=== PATIENT | female | born 1970 | race Caucasian/White ===

== ENCOUNTER → 2016-12-23 | Outpatient (CLI) | payer OTHER ==
[~2016-12-23] MED LIST: CYCL0.052 OP; FLNIN NAE; MTR600X PO; MULTTAB58 PO; OXYC-643 PO
[2016-12-23 17:30] LABS: BLOOD UREA NITROGEN 13 mg/dl (7-18); BUN/CREATININE RATIO 17.8 (10-20); CALCIUM 9.2 mg/dl (8.5-10.1); CARBON DIOXIDE 27 mmol/L (21-32); CHLORIDE 103 mmol/L (98-107); CHOLESTEROL 219 mg/dl (0-200); CREATININE 0.74 mg/dl (0.60-1.20); GLUCOSE 82 mg/dl (70-99); POTASSIUM 3.8 mmol/L (3.5-5.1); SODIUM 138 mmol/L (136-145)
[2016-12-23 17:34] LABS: CHOLESTEROL/HDL RATIO 5.2; HDL CHOLESTEROL 42 mg/dl; LDL CHOLESTEROL CALCULATED 149 mg/dl; TRIGLYCERIDES 142 mg/dl (0-150); VERY LOW DENSITY LIPOPROT CALC 28 mg/dl
== END | disposition home or self-care (01) ==
LOC: C.LABBFT 11:50
PROVIDERS: ATTEND Nurse Practitioner
DX: Z13.6 Encounter for screening for cardiovascular disorders (principal); E55.9 Vitamin D deficiency, unspecified

== ENCOUNTER → 2017-05-04 | Outpatient (CLI) | payer OTHER | END | disposition home or self-care (01) | LOC: C.LABSPEC 17:21 | PROVIDERS: ATTEND Physician Assistant Medical | DX: J02.9 Acute pharyngitis, unspecified (principal) ==

== ENCOUNTER 2023-10-22 17:57 | Observation (INO) ==
[2023-10-22] MEDS ORDERED: ACETAMINOPHEN 1,000 MG/100 ML VIAL IV STA (18:19)
--- NOTE | 2023-10-22 18:19 | ED Triage Note ---
Date of Service October 22, 2023 Provider in Triage Author: Prasanth Goodrich History of Present Illness This patient was briefly evaluated while in triage. An abbreviated physical exam was performed. This patient is a 53-year-old Female who presents to the ED for evaluation of ab dominal pain and nausea. Symptoms more upper abdomen and into back. Symptoms began around 5pm. No fever. Hx of hysterectomy. Still with GB/appendix. Physical Exam Limited Triage Exam: VITALS: Vitals are noted on the nurse's note and reviewed by myself. Vital signs stable. GENERAL: Well-developed, well-nourished, white female who is uncomfortable appearing. HEART: Regular rate and rhythm without murmurs gallops or rubs. LUNGS: Clear to auscultation bilaterally without wheezes, rales or rhonchi. No retractions or accessory muscle use. NEURO: Patient was alert and oriented to person place and time. CN II through XII grossly intact. Initial orders for labs and / or imaging were placed and patient was placed in the waiting area until a bed is available. Please see further documentation for the full ED course. MDM / Impression Impression Impression: Right upper quadrant abdominal pain, Cholelithiasis
[2023-10-22] MEDS ORDERED: SODIUM CHLORIDE 0.9% 1,000 ML IV SCH (18:30)
[2023-10-22 19:39] LABS: Basophils # (auto) 0.09 K/uL (0.00-0.20); Basophils % (auto) 0.7 %; Eosinophils # (auto) 0.12 K/uL (0.00-0.50); Hematocrit (blood only) 40.1 % (37.0-47.0); Hemoglobin 13.6 g/dl (12.0-16.0); Immature Granulocytes # (auto) 0.05 K/uL (0.01-0.20); Immature Granulocytes % (auto) 0.4 %; Lymphocytes # (auto) 2.21 K/uL (1.20-3.40); Lymphocytes % (auto) 17.9 %; Mean Corpuscular Hemoglobin 27.9 pg (25.0-34.0); Mean Corpuscular Hgb Conc 33.9 g/dL (32.0-36.0); Mean Corpuscular Volume 82.2 fL (80.0-100.0); Mean Platelet Volume 10.3 fL (9.4-12.4); Monocytes # (auto) 0.75 K/uL (0.11-0.59); Monocytes % (auto) 6.1 %; Neutrophils # (auto) 9.14 K/uL (1.40-6.50); Neutrophils % (auto) 73.9 %; Platelet Count 397 K/uL (130-400); RDW Coefficient of Variation 13.2 % (11.5-14.5); RDW Standard Deviation 39.7 fL (36.4-46.3); Red Blood Count 4.88 M/uL (4.20-5.40); White Blood Count 12.36 K/ul (4.8-10.8)
[2023-10-22 19:46] LABS: Albumin Level 4.2 gm/dl (3.4-5.0); Bilirubin,Total 0.4 mg/dl (0.2-1.0); Calcium 9.5 mg/dl (8.6-10.3); Potassium 3.7 mmol/L (3.5-5.1)
[2023-10-22 19:53] LABS: Albumin Globulin Ratio 1.4 (0.9-2); Est GFR (African American) 95.4 ml/min; Est GFR (Non-African American) 82.3 ml/min; Globulin 2.9 gm/dl (2.5-4.0); Total Protein 7.1 gm/dl (6.0-8.3)
[2023-10-22 22:02] LABS: Appearance Urine Clear (Clear); Bilirubin Urine Negative (Negative); Blood Urine Negative (Negative); Color Urine Dark Yellow; Glucose Urine UA Negative (Negative); Ketones Urine Trace (Negative); Leukocyte Esterase Urine Negative (Negative); Nitrite Urine Negative (Negative); Protein Urine Negative (Negative); Specific Gravity Urine 1.039 (1.000-1.030); Urobilinogen Urine Negative (Negative); pH Urine 5.5 (4.5-7.5)
--- NOTE | 2023-10-22 23:33 | Emergency Department Note ---
History of Present Illness General Chief complaint: Abdominal Pain Stated complaint: SEVERE STOMACH PAIN Time Seen by Provider: 10/22/23 23:15 Source: patient, family ( who is at the bedside), RN notes reviewed and old records reviewed (Primary care office visit from 08-19-2023 for wellness) Mode of arrival: ambulatory Limitations: no limitations History of Present Illness Maximum Pain Intensity: 9 This patient is a 53 year old female who comes in with right upper quadrant abdominal pain started more in the epigastric area and radiates to her back. She said it started suddenly around 5:00. She had baked chicken for lunch but she did eat dawson for breakfast. She has no nausea or vomiting. no chest pain shortness of breath. No trauma or injury. no dysuria or hematuria. No lower abdominal pain. She feels a lot better than she did earlier. She had normal bowel movements no diarrhea constipation or lower extremity pain or swelling. No history of similar. She has had a hysterectomy but no other abdominal surgery Home Medications Medication Instructions Recorded Confirmed Type ascorbic acid (vitamin C) 500 mg 500 mg PO DAILY 03/22/20 08/19/23 History chewable tablet cholecalciferol (vitamin D3) 50 50 mcg PO DAILY 03/22/20 08/19/23 History mcg (2,000 unit) capsule mupirocin 2 % topical ointment 1 applic topical BID PRN 02/04/21 08/19/23 History ipratropium bromide 21 mcg (0.03 2 spray intranasal BID PRN 02/19/22 08/19/23 Rx %) nasal spray drainage #90 mL cetirizine 10 mg tablet (Zyrtec) 10 mg PO DAILY PRN 03/04/22 08/19/23 History lactobacillus combination no.4 3 3,000 mmu cells PO DAILY 11/17/22 08/19/23 History billion cell capsule (Probiotic) metronidazole 1 % topical gel 1 applic topical DAILY PRN rosacea 11/17/22 08/19/23 Rx #60 grams doxycycline monohydrate 50 mg 50 mg PO .QOD 07/06/23 08/19/23 History capsule methylprednisolone 4 mg tablets in 4 mg PO DAILY #21 ea 07/06/23 08/19/23 Rx a dose pack metoprolol succinate 25 mg 25 mg PO DAILY 08/10/23 08/19/23 History tablet,extended release 24 hr aspirin 81 mg chewable tablet 81 mg PO DAILY #90 tabs 08/19/23 08/19/23 Rx (Aspirin Childrens) atorvastatin 10 mg tablet 10 mg PO DAILY #90 tabs 08/19/23 08/19/23 Rx hydrochlorothiazide 12.5 mg tablet 12.5 mg PO DAILY #90 tabs 08/19/23 08/19/23 Rx potassium chloride 20 mEq 20 meq PO DAILY 08/19/23 08/19/23 History tablet,extended release(part/cryst) lisinopril 20 mg tablet 20 mg PO DAILY #90 tabs 08/27/23 Rx Allergies Allergy/AdvReac Type Severity Reaction Status Date / Time No Known Drug Allergies Allergy Unknown Verified 08/19/23 09:09 Past Med/Surg History Medical History Shingles rash Surgical History History of shoulder surgery History of hysteroscopy with endometrial ablation History of hysterectomy Family History Father Diabetes Coronary heart disease Hypertension Dyslipidemia Mother Diabetes Hypertension Dyslipidemia Sister Coronary heart disease Hypertension Dyslipidemia Brother Hypertension Dyslipidemia Denies family history of Breast cancer Colorectal cancer Social History Smoking Status: Never smoker Second Hand Exposure: No; Do You Dip or Chew Tobacco: No; Hx Alcohol Use: No Hx Substance Use: No Preferred Language: Kazakh Communication Ability: Effective Multiple Needle Stitcher Required: No marital status: Current Living Situation: Spouse current occupational status: employed 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 How many Children do You have: 1 Feels Safe at Home: Yes Childhood Exposure to Second-Hand Smoke: No Diet: regular caffeine: Yes Dental Care, Regularly: No Physical Activity Frequency: 1-2 Times per Week Seatbelt Use: always Sunscreen Use: Yes Review of Systems A total of 10 systems reviewed and were otherwise negative Physical Exam Vital Signs Vital Signs - 24 hr 10/22/23 18:18 10/22/23 23:37 Temperature 36.5 C Temperature Source Temporal Artery Scan Pulse Rate 70 Pulse Rate [Finger] 56 L Pulse Rhythm [Finger] Regular Pulse Strength [Finger] Normal Respiratory Rate 20 18 Respiratory Effort / Characteristics Non-Labored Non-Labored Spontaneous Respiratory Depth Normal Normal Respiratory Pattern Regular Blood Pressure 150/89 H Blood Pressure [Left Arm] 148/85 H Blood Pressure Mean 109 Blood Pressure Mean [Left Arm] 106 Blood Pressure Position [Left Arm] Sitting Pulse Oximetry 96 97 Oxygen Delivery Method Room Air Room Air Sepsis Recent Fever Within 48 Hours No Sepsis New/Unexplained Change in Mental Status No Sepsis Action Taken by Nursing No Action Required General: Well developed well nourished middle-age female who appears in no acute distress, breathing comfortably on room air. Normal speech HEENT: Normal cephalic atraumatic. Pupils are equal round and reactive to light. Extraocular movements are intact. Oropharynx is pink with moist mucous membranes. No swelling of the mouth lips or tongue. Neck: Supple with a midline trachea. No meningeal signs or stiffness, no JVD or bruits. No Stridor. Chest: Clear to auscultation bilaterally. No wheezes or rhonchi. No increased work of breathing. Heart: Regular rate and rhythm without murmurs or gallops. Abdomen: Soft, mildly tender in epigastric area in the right upper quadrant,, nondistended without rebound guarding or rigidity. Extremities: No cyanosis clubbing or edema. No calf tenderness or assymetry Spine/Back. Non tender to palpation. No CVA tenderness Skin: Good turgor without rashes. Neurologic exam: Cranial nerves two through 12 are intact. Motor and sensation are intact and symmetrical throughout. Course Administered Medications Discontinued Medications Sodium Chloride (Nss) 1,000 mls @ 999 mls/hr IV .Q1H1M [facility] Stop: 10/22/23 19:30 Last Infusion: 10/22/23 23:37 Dose: Infused Documented By: Admin: 10/22/23 18:32 Dose: 999 mls/hr Documented By: JONATHAN Acetaminophen (Ofirmev) 1,000 mg in 100 mls @ 400 mls/hr IV NOW STA Stop: 10/22/23 18:33 Last Infusion: 10/22/23 23:37 Dose: Infused Documented By: Admin: 10/22/23 18:34 Dose: 400 mls/hr Documented By: JONATHAN Medical Decision Making Differential Diagnosis Gallbladder disease, acute cholecystitis, pancreatitis, cardiac disease, electrolyte or metabolic abnormality, infection Medical Records Attestation: I reviewed the patient's medical records. Home Medications Current Medication List: was personally reviewed by me Laboratory Data Attestation: I reviewed the patient's lab results. 10/22/23 18:40 10/22/23 18:40 Lab Results 10/22/23 10/22/23 10/22/23 Range/Units 18:40 18:40 21:07 WBC 12.36 H (4.8-10.8) K/ul RBC 4.88 (4.20-5.40) M/uL Hgb 13.6 (12.0-16.0) g/dl Hct 40.1 (37.0-47.0) % MCV 82.2 (80.0-100.0) fL MCH 27.9 (25.0-34.0) pg MCHC 33.9 (32.0-36.0) g/dL RDW Std Deviation 39.7 (36.4-46.3) fL RDW Coeff of Tarik 13.2 (11.5-14.5) % Plt Count 397 (130-400) K/uL MPV 10.3 (9.4-12.4) fL Immature Gran % (Auto) 0.4 % Neut % (Auto) 73.9 % Lymph % (Auto) 17.9 % [place] % (Auto) 6.1 % Eos % (Auto) 1.0 % Baso % (Auto) 0.7 % Neut # (Auto) 9.14 H (1.40-6.50) K/uL Lymph # (Auto) 2.21 (1.20-3.40) K/uL [place] # (Auto) 0.75 H (0.11-0.59) K/uL Eos # (Auto) 0.12 (0.00-0.50) K/uL Baso # (Auto) 0.09 (0.00-0.20) K/uL Immature Gran # (Auto) 0.05 (0.01-0.20) K/uL Sodium 139 (136-145) mmol/L Potassium 3.7 (3.5-5.1) mmol/L Chloride 105 (98-107) mmol/L Carbon Dioxide 26 (21-32) mmol/L Anion Gap 8 (3-11) BUN 18 (6-23) mg/dl Creatinine 0.82 (0.6-1.2) mg/dl Est Cr Clr Drug Dosing 93.0 ml/min Est GFR ( Amer) 95.4 ml/min Est GFR (Non-Af Amer) 82.3 ml/min BUN/Creatinine Ratio 22.0 H (10-20) Glucose 122 H (70-99(Fasting)) mg/dl Calcium 9.5 (8.6-10.3) mg/dl Total Bilirubin 0.4 (0.2-1.0) mg/dl AST 50 H (13-39) U/L ALT 34 (7-52) U/L Alkaline Phosphatase 67 (34-104) U/L Troponin I High Sens 4.0 Cancelled (0-14) pg/ml Total Protein 7.1 (6.0-8.3) gm/dl Albumin 4.2 (3.4-5.0) gm/dl Globulin 2.9 (2.5-4.0) gm/dl Albumin/Globulin Ratio 1.4 (0.9-2) Lipase 23 (11-82) U/L Urine Color Dark Yellow Urine Appearance Clear (Clear) Urine pH 5.5 (4.5-7.5) Ur Specific [place] 1.039 H (1.000-1.030) Urine Protein Negative (Negative) Urine Glucose (UA) Negative (Negative) Urine Ketones Trace H (Negative) Urine Blood Negative (Negative) Urine Nitrite Negative (Negative) Urine Bilirubin Negative (Negative) Urine Urobilinogen Negative (Negative) Ur Leukocyte Esterase Negative (Negative) Imaging Data Attestation: I personally reviewed and interpreted this imaging study as follows: My Impression: Ultrasound gallbladder there are multiple stones seen upon my evaluation Radiologist's Impression: Gallbladder Ultrasound 10/22/23 20:01 Exam(s): US GALLBLADDER EXAM: US Abdomen Limited, Gallbladder CLINICAL HISTORY: Reason for exam: ruq pain. TECHNIQUE: Real-time ultrasound of the right upper quadrant with image documentation. COMPARISON: No relevant prior studies available. FINDINGS: Liver: Liver measures 16.5 cm. Increased echogenicity. No focal lesion. Gallbladder: Cholelithiasis. Negative Wade sign. Gallbladder wall thickness is upper limits of normal at 3 mm. Common bile duct: Unremarkable as visualized. No biliary dilatation., But that 3 mm. Pancreas: Pancreas unremarkable as visualized. Right kidney: Right kidney measures 10.1 cm. No hydronephrosis. Other vasculature: Portal vein patent and normally directed. IMPRESSION: 1. Cholelithiasis with gallbladder wall thickness at the upper limits of normal. Negative Wade sign. Findings are strongly suggestive of cholecystitis. Correlate clinically. 2. No biliary dilatation. 3. Echogenic liver suggesting steatosis or other hepatocellular disease. Electronically signed by: Gabbi Alatorre M.D. 10/22/23 23:35 PM ECG Data Attestation: I personally reviewed and interpreted this ECG as follows: Indication: + chest pain Rate (beats per minute): 80 Rhythm: + normal sinus ECG Intervals/blocks: + Normal QRS, + Normal QT and + Normal VA ECG [place]: + Normal ECG ST segments: + Normal ST segments ECG Findings: + PVCs; no PACs Comparison ECG Date: no prior available MDM Narrative This patient comes in described above. She is sudden onset of epigastric pain. She feels better now it did radiate to her back. She had no chest pain. EKG was unremarkable shows no ischemic changes or ectopy her pain is reproduced when I push on the epigastric area and slightly to the right. She has no known history of gallstones. IV access was established. Blood work is obtained. Her white blood count is mildly elevated however she is afebrile. she has no significant anemia. She has no significant electrolyte or metabolic abnormalities. She has nothing to suggest liver or pancreas disease based on her blood work. Gallbladder ultrasound was obtained and does show multiple gallstones with findings consistent with acute cholecystitis when to go back to recheck her the pain is coming back so I did order morphine 4 mg IV and Zofran 4 mg IV. I did consult surgery and Richard Bardales saw her in the ER is going to admit her. He did agree with antibiotics and I gave her Zosyn 4.5 g IV. I did check with her prior and she has no allergies. She will be admitted to surgery. Impression & Plan Right upper quadrant abdominal pain, Cholelithiasis, Acute cholecystitis, Nausea Discharge Plan Visit Data Chief Complaint: Abdominal Pain Stated Complaint: SEVERE STOMACH PAIN ED Provider: Ruel Niño Discharge Problem: Right upper quadrant abdominal pain, Cholelithiasis, Acute cholecystitis, Nausea Forms Stand Alone Forms: My [facility] [email or web address] Prescriptions Prescriptions: No Action ipratropium bromide 21 mcg (0.03 %) spray,non-aerosol 2 spray intranasal BID PRN (Reason: drainage ) Qty: 90 3RF Rx Instructions: administer into each nostril metoprolol succinate 25 mg tablet extended release 24 hr 25 mg PO DAILY lisinopril 20 mg tablet 20 mg PO DAILY Qty: 90 3RF doxycycline monohydrate 50 mg capsule 50 mg PO .QOD methylprednisolone 4 mg tablets,dose pack 4 mg PO DAILY Qty: 21 0RF Rx Instructions: Follow pack instructions Probiotic 3 billion cell capsule 3,000 mmu cells PO DAILY Rx Instructions: administer with a meal metronidazole 1 % gel 1 applic topical DAILY PRN (Reason: rosacea) Qty: 60 5RF aspirin [Aspirin Childrens] 81 mg tablet,chewable 81 mg PO DAILY Qty: 90 3RF atorvastatin 10 mg tablet 10 mg PO DAILY Qty: 90 3RF potassium chloride 20 mEq tablet,ER particles/crystals 20 meq PO DAILY Hold Instructions: Home Medication placed on hold at Doctor's office hydrochlorothiazide 12.5 mg tablet 12.5 mg PO DAILY Qty: 90 3RF mupirocin 2 % ointment 1 applic topical BID PRN Rx Instructions: Apply small amount to the rim of the nostril twice daily x 14 days then PRN nasal dryness or nose bleeds cholecalciferol (vitamin D3) 50 mcg (2,000 unit) capsule 50 mcg PO DAILY ascorbic acid (vitamin C) 500 mg tablet,chewable 500 mg PO DAILY cetirizine [Zyrtec] 10 mg tablet 10 mg PO DAILY PRN Referrals Referrals: Hay Trinidad DO [Primary Care Provider] - Discharge Problem: Cholelithiasis Qualifiers: Cholelithiasis location: gallbladder Cholecystitis presence: with cholecystitis Cholecystitis acuity: acute Biliary obstruction: without biliary obstruction Q ualified Code(s): K80.00 - Calculus of gallbladder with acute cholecystitis without obstruction
--- OUTSIDE RECORDS SUMMARY | 2023-10-22 23:49 | External Medical Summary | Continuity of Care Document ---
Author Name Unknown Organization [facility] [address] Address [address] [place], [place] [id number] Care Team Providers Care Quality Assurance Monitor Body Name Role Phone Hay Trinidad Primary Care Physician [id number] Date(s): 08/03/23 - 08/03/23 [facility] [address], [facility] 1 [place], [place] [phone] Encounter Diagnosis Hypokalemia(Final) - Discharge Disposition: Home or Self Care Attending Physician: GENE Gamez Sarah A Referring Physician: GENE Gamez Sarah A Allergies, Adverse Reactions, Alerts No Known Allergies Medications aspirin 81 mg oral capsule Start: 07/26/23 9:56:00 EDT, 1 cap, PO Start Date: 07/26/23 Status: Ordered [place] Benefits Start: 07/26/23 9:55:00 EDT Start Date: 07/26/23 Status: Ordered hydroCHLOROthiazide 25 mg oral tablet Start: 07/26/23 9:53:00 EDT, 1 tab, PO, Daily Start Date: 07/26/23 Status: Ordered ipratropium 21 mcg/inh (0.03%) nasal spray Start: 07/26/23 9:57:00 EDT, 2 spray, each nostril, bid, PRN: as needed for allergy symptoms Start Date: 07/26/23 Status: Ordered metoprolol succinate 25 mg oral tablet, extended release Start: 08/04/23 15:46:00 EDT, 1 tab, PO, qhs, Disp# 30 tab, Refills: 11, Pharmacy: [facility] Start Date: 08/04/23 Status: Ordered Potassium Chloride (Eqv-K-Tab) 20 mEq oral tablet, extended release Start: 07/27/23 9:38:00 EDT, 1 tab, PO, Daily, Disp# 30 tab, Refills: 11, Pharmacy: [facility] Start Date: 07/27/23 Status: Ordered ZyrTEC Start: 07/26/23 10:03:00 EDT Start Date: 07/26/23 Status: Ordered Results Laboratory List Name Date Basic Metabolic Panel (BASIC METAB PANEL ) 08/03/23 Most recent to oldest [Reference Range]: 1 eGFR CKD-EPI [>60 mL/min/1.73 m2] 80 mL/ min/1.73 m2 1 (08/03/23 9:30 AM) Estimated CrCl 88.56 mL/min (08/03/23 10:06 AM) Anion Gap [5-14 mmol/L] 10 mmol/L (08/03/23 9:30 AM) BUN [7-20 mg/dL] 16 mg/dL (08/03/23 9:30 AM) Ca [8.4-10.2 mg/dL] 9.4 mg/dL (08/03/23 9:30 AM) Cl- [96-107 mmol/L] 103 mmol/L (08/03/23 9:30 AM) HCO3 [22-30 mmol/L] 26 mmol/L (08/03/23 9:30 AM) Cret [0.60-1.00 mg/dL] 0.87 mg/dL (08/03/23 9:30 AM) Glu [74-106 mg/dL] 73 mg/dL *LOW* (08/03/23 9:30 AM) K [3.5-5.1 mmol/L] 4.0 mmol/L (08/03/23 9:30 AM) Na [137-145 mmol/L] 139 mmol/L (08/03/23 9:30 AM) 1Result Comment: Testing Performed By: [facility] [address], [facility] [address], [place] [address] Social History Social History Type Response Smoking Status Never smoked cigaret gabrielle Sex Female Patient Care team information Care Team Personnel Name: DO Trinidad Jason M Position: Referring Member Role: Primary Care Provider Address: Address: [address] [place] [id number] Care Team Related Persons Name: WANDER MATTHEWS Address: home [address] [place] [phone]
--- OUTSIDE RECORDS SUMMARY | 2023-10-22 23:49 | External Medical Summary | Continuity of Care Document ---
Author Name Unknown Organization [facility] Address [address] [place], [place] [id number] Care Team Providers Care Motion Picture Scene Builder Name Role Phone Hay Trinidad Primary Care Physician [id number] Date(s): 07/26/23 - 07/26/[address], [address] [place] [address] [phone] Encounter Diagnosis Ventricular premature depolarization(Final) - Hypokalemia(Discharge Diagnosis) - 07/27/23 Discharge Disposition: Home or Self Care Attending Physician: GENE Gamez Sarah A Referring Physician: GENE Gamez Sarah A Allergies, Adverse Reactions, Alerts No Known Allergies Medications aspirin 81 mg oral capsule Start: 07/26/23 9:56:00 EDT, 1 cap, PO Start Date: 07/26/23 Status: Ordered [place] Benefits Start: 07/26/23 9:55:00 EDT Start Date: 07/26/23 Status: Ordered hydroCHLOROthiazide 25 mg oral tablet Start: 07/26/23 9:53:00 EDT, 1 tab, PO, Daily Start Date: 07/26/23 Status: Ordered ipratropium 21 mcg/inh (0.03%) nasal spray Start: 07/26/23 9:57:00 EDT, 2 spray, each nostril, bid, PRN: as needed for allergy symptoms Start Date: 07/26/23 Status: Ordered Potassium Chloride (Eqv-K-Tab) 20 mEq oral tablet, extended release Start: 07/27/23 9:38:00 EDT, 1 tab, PO, Daily, Disp# 30 tab, Refills: 11, Pharmacy: [facility] Start Date: 07/27/23 Status: Ordered ZyrTEC Start: 07/26/23 10:03:00 EDT Start Date: 07/26/23 Status: Ordered Problem List Diagnosis Diagnosis Type Effective Dates Health Status Clini allie Service Informant Hypokalemia Discharge Diagnosis 07/27/23 Non-Specified Results Laboratory List Name Date Basic Metabolic Panel (BASIC METAB PANEL ) 07/26/23 Magnesium Level (MAGNESIUM) 07/26/23 T4, Free (T4, FREE) 07/26/23 Thyroid Stimulating Hormone (TSH) 3 Most recent to oldest [Reference Range]: 1 eGFR CKD-EPI [>60 mL/min/1.73 m2] 84 mL/ min/1.73 m2 1 (07/26/23 11:39 AM) Estimated CrCl 91.72 mL/min (07/26/23 12:27 PM) Anion Gap [5-14 mmol/L] 8 mmol/L (07/26/23 11:39 AM) BUN [7-20 mg/dL] 13 mg/dL (07/26/23 11:39 AM) Ca [8.4-10.2 mg/dL] 8.9 mg/dL (07/26/23 11:39 AM) Cl- [96-107 mmol/L] 101 mmol/L (07/26/23 11:39 AM) HCO3 [22-30 mmol/L] 29 mmol/L (07/26/23 11:39 AM) Cret [0.60-1.00 mg/dL] 0.84 mg/dL (07/26/23 11:39 AM) Glu [74-106 mg/dL] 94 mg/dL (07/26/23 11:39 AM) K [3.5-5.1 mmol/L] 3.3 mmol/L *LOW* (07/26/23 11:39 AM) Mg [1.6-2.3 mg/dL] 2.0 mg/dL 2 (07/26/23 11:39 AM) Na [137-145 mmol/L] 138 mmol/L (07/26/23 11:39 AM) Free T4 [0.70-1.48 ng/dL] 1.02 ng/dL 3 (07/26/23 11:39 AM) TSH [0.47-4.68 uIU/mL] 1.61 uIU/mL 4 (07/26/23 11:39 AM) 1Result Comment: Testing Performed By: Dept of Pathology [facility] [address], [address], [place] [address] 2Result Comment: Testing Performed By: Dept of Pathology [facility] [address], [address], [place] [address] 3Result Comment: Testing Performed By: Dept of Pathology [facility] [address], [address], [place] [address] 4Result Comment: Testing Performed By: Dept of Pathology [facility] [address], [address], [place] [address] Social History Social History Type Response Smoking Status Never smoked cigaret gabrielle Sex Female Patient Care team information Care Team Personnel Name: DO Trinidad Jason M Position: Referring Member Role: Primary Care Provider Address: Address: [address] [place] [id number] Care Team Related Persons Name: WANDER MATTHEWS Address: home [address] [place] [phone]
--- OUTSIDE RECORDS SUMMARY | 2023-10-22 23:49 | External Medical Summary | Continuity of Care Document ---
Author Name Unknown Organization [place] [address] [facility] Address [address] [place], [place] [id number] Care Team Providers Care Grade Teacher Name Role Phone Hay Trinidad Primary Care Physician [id number] Date(s): 08/04/23 - 08/04/[address], [address] [place] [address] [phone] Discharge Disposition: Home or Self Care Attending Physician: DO Bailon Jason D Referring Physician: DO Bailon Jason D Allergies, Adverse Reactions, Alerts No Known Allergies Medications aspirin 81 mg oral capsule Start: 07/26/23 9:56:00 EDT, 1 cap, PO Start Date: 07/26/23 Status: Ordered [place] Benefits Start: 07/26/23 9:55:00 EDT Start Date: [...] 10:03:00 EDT Start Date: 07/26/23 Status: Ordered Social History Social History Type Response Smoking Status Never smoked cigaret gabrielle Sex Female Patient Care team information Care Team Personnel Name: DO Trinidad Jason M Position: Referring Member Role: Primary Care Provider Address: Address: [address] [place] [id number] [place] Care Team Related Persons Name: WANDER MATTHEWS Address: home [address] [place] [phone]
--- OUTSIDE RECORDS SUMMARY | 2023-10-22 23:49 | External Medical Summary | Continuity of Care Document ---
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 Role Phone Hay Trinidad Primary Care Physician [phone] [id number] Date(s): 08/23/23 - 08/23/[address], [address] [place] [address] [phone] Discharge Disposition: Home or Self Care Attending Physician: GENE Gamez Sarah A Referring Physician: GENE Gamez Sarah A Allergies, Adverse Reactions, Alerts No Known Allergies Medications aspirin 81 mg oral capsule Start: 07/26/23 9:56:00 EDT, 1 cap, PO Start Date: 07/26/23 Status: Ordered De [place] Benefits Start: 07/26/23 9:55:00 EDT Start Date: [...] EDT Start Date: 07/26/23 Status: Ordered Results Radiology Reports * Exam Date Time Procedure Performing Provider Status 08/23/23 10:42 AM Echo TransTHORacic TTE Complete Eva Orozco; Final Notes: (Echo TransTHORacic TTE Complete) Reason For Exam: frequent pvc Echo TransTHORacic TTE Complete Report Signatures Finalized by Dr. Hay Bailon MD on 08/23/2023 05:06 PM [place] Act 112: No-No further action needed Summary 1. Normal left ventricular size and systolic function with no regional wall motion abnormalities. 2. Ejection fraction as calculated by Biplane Simpsons method is 65%. 3. No left ventricular hypertrophy. 4. Normal LV diastolic function and left atrial pressure. 5. Normal right ventricular size and function. 6. Normal biatrial size. 7. No valvular pathology. 8. Insufficient TR/PI for estimation of pulmonary artery pressures. 9. Sinus bradycardia with occasional PVCs. 10. Unremarkable study. No prior studies for comparison. Patient Info Name: JACOB MATTHEWS Age: 53 years : 1970 Gender: Female Ht: 173 cm Wt: 88 kg BSA: 2.08 m2 HR: 59 bpm BP: 128 / 80 mmHg Heart Rhythm: PVCs, Sinus Bradycardia Technical Quality: Good Exam Date: 08/23/2023 10:07 AM Exam Location: [facility] Patient Status: Outpatient Staff Ordering Physician: France Gamez Fashion Consultant: Eva Hurtado RDCS, T Attending Physician: France Gamez Study Info CPT 86658 - Indications I493 - Ventricular premature depolarization Procedure(s) * A complete two-dimensional, color flow and Doppler transthoracic echocardiogram was performed. Exam Type: Cardiac Basic Left Ventricle Normal left ventricular size and systolic function with no regional wall motion abnormalities. Ejection fraction as calculated by Biplane Simpsons method is 65%. No left ventricular hypertrophy. Normal LV diastolic function and left atrial pressure. Right Ventricle Normal right ventricular size and function. TAPSE is normal, 2.2 cm. Left Atrium Normal left atrial size. Right Atrium Normal right atrial size. Atrial Septum Appears intact. Aortic Valve Normal, tricuspid aortic valve without stenosis or insufficiency. Pulmonic Valve Unremarkable pulmonic valve. Trace pulmonary regurgitation. Mitral Valve Normal mitral valve. Trace mitral valve regurgitation. Tricuspid Valve Unremarkable tricuspid valve. Insufficient TR for estimation of pulmonary artery systolic pressure. Pericardium/Pleural No pericardial effusion. Inferior Vena Cava Normal IVC size and inspiratory collapse. Estimated right atrial pressure is 3 mmHg. Aorta Normal aortic root and ascending aorta size for BSA. Normal aortic arch. Left Ventricular Outflow Tract Name Value Normal LVOT 2D LVOT Diameter 1.9 cm LVOT Doppler LVOT Peak Velocity 1.04 m/s LVOT Mean Gradient 2 mmHg LVOT VTI 22.00 cm LVOT Stroke Volume 63.82 ml LVOT Stroke Volume Index 0.03 l/m2 LVOT Cardiac Output 3.77 l/min LVOT Cardiac Index 1.81 L/min/m2 Pulmonic Valve Name Value Normal PV 2D RVOT Diameter (2D) 3.1 cm 1.7-2.7 RVOT Doppler RVOT Peak Velocity 0.58 m/s PV Doppler PV Peak Velocity 0.98 m/s Mitral Valve Name Value Normal MV Doppler MV PHT 55 ms MV Diastolic Function MV E Peak Velocity 0.71 m/s <=0.50 MV A Peak Velocity 0.62 m/s MV E/A 1.14 <=0.80 MV Decel Time 190 ms MV Annular TDI MV Septal s' Velocity 6.40 cm/s MV Septal e' Velocity 7.10 cm/s >=7.00 MV E/e' (Septal) 10.0 <=8.0 MV Lateral s' Velocity 8.92 cm/s MV Lateral e' Velocity 6.39 cm/s >=10.00 MV E/e' (Lateral) 11.06 <=8.00 MV e' Average 6.75 MV E/e' (Average) 10.51 <=14.00 Tricuspid Valve Name Value Normal Estimated PAP/RSVP RA Pressure 3 mmHg <=5 TV Diastolic Function TV E Peak Velocity 0.39 m/s TV A Peak Velocity 0.26 m/s TV E/A 1.48 0.80-2.00 TV Decel Time 380 ms >=120 TV Annular TDI TV Lateral Teena s' Velocity 17.9 cm/s 9.5-18.7 TV Lateral Teena e' Velocity 13.4 cm/s <7.8 TV E/e' 2.87 2.00-6.00 Aorta Name Value Normal Ascending Aorta Sinus of Valsalva Diameter 3.4 cm 2.7-3.3 Sinus of Valsalva Index 1.63 cm/m2 1.60-2.00 Prox Asc Ao Diameter 3.4 cm 2.3-3.1 Prox Asc Ao Diameter Index 1.65 cm/m2 1.30-1.90 Thoracic Aorta Ao Arch Diameter 2.6 cm Desc Ao Peak Velocity 0.95 m/s Desc Ao Peak Gradient 4 mmHg Venous Name Value Normal IVC/SVC IVC Diameter (Insp 2D) 0.5 cm IVC Diameter (Exp 2D) 1.6 cm <=2.1 IVC Diameter Percent Change (2D) 67 % >=50 Aortic Valve Name Value Normal AV Doppler AV Peak Velocity 1.40 m/s <2.00 AV Area (Cont Eq Tejinder) 2.2 cm2 AV Area Index (Cont Eq Tejinder) 1.03 cm2/m2 AV V1/V2 Ratio 0.74 AV Regurgitation 2D LVOT Area 2.9 cm2 Ventricles Name Value Normal LV Dimensions 2D/MM IVS Diastolic Thickness (2D) 0.7 cm 0.6-0.9 LVID Diastole (2D) 4.8 cm 3.3-5.1 LVIW Diastolic Thickness (2D) 0.9 cm 0.6-0.9 LVID Systole (2D) 3.5 cm 2.2-3.5 LVOT Diameter 1.9 cm LV Mass (2D Cubed) 124.03 g 67.00-162.00 LV Mass Index (2D Cubed) 0.01 g/cm2 0.00-0.01 Relative Wall Thickness (2D) 0.35 LV Fractional Shortening/Ejection Fraction 2D/MM LV Fractional Shortening (2D) 27 % 27-45 LV Diastolic Volume (4C MOD) 100 ml LV Diastolic Volume (2C MOD) 93 ml LV Diastolic Volume (BP MOD) 96 ml 46-106 LV Diastolic Volume Index (BP MOD) 46.13 ml/m2 29.00-61.00 LV Systolic Volume (BP MOD) 34 ml 14-42 LV Systolic Volume Index (BP MOD) 16.43 ml/m2 8.00-24.00 LV EF (BP MOD) 65 % 58-69 LV SV (BP MOD) 61.88 ml LV End Diastolic Volume (BP A-L) 101.11 ml LV End Systolic Volume (BP A-L) 33.70 ml LV EF (BP A-L) 67 % RV Dimensions 2D/MM RV Basal Diastolic Dimension 3.4 cm 2.5-4.1 TAPSE 2.2 cm >=1.7 Atria Name Value Normal LA Dimensions LA Area (4C) 15.9 cm2 LA Length (4C) 5.4 cm LA Area (2C) 17.6 cm2 LA Length (2C) 5.5 cm LA Volume (4C A-L) 39.42 ml LA Volume (2C A-L) 47.54 ml LA Volume (BP A-L) 44 ml 22-52 LA Volume Index (BP A-L) 21.00 ml/m2 <=34.00 RA Dimensions RA Area (4C) 11.8 cm2 <=18.0 Final Signed by:DO Bailon Jason D Signed (Electronic Signature):08/23/2023 10:07 Social History Social History Type Response Smoking Status Never smoked cigaret gabrielle Sex Female Patient Care team information Care Team Personnel Name: DO Trinidad Jason M Position: Referring Member Role: Primary Care Provider Address: Address: [address] [place] [address] Care Team Related Persons Name: WANDER MATTHEWS Address: [address] [phone]
--- OUTSIDE RECORDS SUMMARY | 2023-10-22 23:49 | External Medical Summary | Continuity of Care Document ---
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 Date(s): 07/26/23 - 07/26/23 [facility] [address] [place] [address] [phone] Encounter Diagnosis Body mass index [BMI] 29.0-29.9, adult(Discharge Diagnosis) - 07/26/23 Bradycardia(Discharge Diagnosis) - 07/26/23 Frequent PVCs(Discharge Diagnosis) - 07/26/23 HLD (hyperlipidemia)(Discharge Diagnosis) - 07/26/23 HTN (hypertension)(Discharge Diagnosis) - 07/26/23 Discharge Disposition: Home or Self Care Attending Physician: GENE Gamez Sarah A Referring Physician: DO Trinidad Jason M Allergies, Adverse Reactions, Alerts No Known Allergies Assessment and Plan Extracted from: Title:Cardiology Office Visit Note Author:GENE Neff rd, Sarah A Date:07/26/23 Impression: 1. Significant family history of early CAD with a sister having CABG at 39 and a sister having CABG in her 50s 2. Frequent PVCs 3. Bradycardia 4. HLD 5. HTN An EKG was performed in the office today showing SR with PVCs of two different morphologies. Ms. Matthews does not feel any palpitations. I would like her to wear a 24 hour Holter monitor to quantify her PVC burden. I would also like her to get lab work today to make sure her electrolytes and thyroid studies today. She will have an echo in the next few days. Her blood pressure is much better controlled with the increase in her hctz by her pcp. I reviewed her most recent lab work. Her LDL was 180 previously but with diet changes reduced to 130s. I discussed with her that her 10 year ASCVD risk is 3.6% which is generally below where we start to recommend statin therapy. Given her family history however she could consider a coronary artery calcium score to evaluate her arterial plaque burden and help risk stratify. If she has a significant score then we would want to be more aggressive with maximizing medical therapy. She would like to think about it and get back to me. If she has a significant PVC burden it would warrant a stress test but I would hold off on referral for stress testing otherwise as she is not having any concerning anginal symptoms or changes in functional capacity. She did have an EKG with her pcp in the spring with significant bradycardia. She has not had any symptoms consistent with chronotropic incompetence. We reviewed that she would want to let us know if she were getting lightheaded, sob or fatigued with exercise and unable to get her heart rate up above 100 with exertion. We discussed that the AHA recommends 30 minutes of moderate cardiovascular exercise per day or 3.5 hours per week. She should also maintain a Mediterranean diet for heart health. She will return to the clinic in a month Medications aspirin 81 mg oral capsule Start: 07/26/23 9:56:00 EDT, 1 cap, PO Start Date: 07/26/23 Status: Ordered [place] Benefits Start: 07/26/23 9:55:00 EDT Start Date: [...] 10:03:00 EDT Start Date: 07/26/23 Status: Ordered Mental Status 07/26/23 Mandatory Health Literacy Documentation Yes Health Literacy Communication Barriers N ever Primary Language [place] Island[place] Problem List Diagnosis Diagnosis Type Effective Dates Health Status Clinical Service Informant Body mass index [BMI] 29.0-29.9, adult Discharge Diagnosis 07/26/23 Non-Specified Bradycardia Discharge Diagnosis 07/26/23 Non-Specified HLD (hyperlipidemia) Discharge Diagnosis 07/26/23 Non-Specified HTN (hypertension) Discharge Diagnosis 07/26/23 Non-Specified Frequent PVCs Discharge Diagnosis 07/26/23 Non-Specified Vital Signs Most recent to oldest [Reference Range]: 1 Height 173.5 cm (07/26/23 10:04 AM) Patient Weight 88.5 kg (07/26/23 10:04 AM) Body Mass Index 29.4 kg/m2 (07/26/23 10:04 AM) Heart Rate 42 bpm (07/26/23 10:04 AM) Respiratory Rate 18 br/min (07/26/23 10:04 AM) Blood Pressure 128/80mmHg (07/26/23 10:04 AM) BP Location # 1 Left Arm (07/26/23 10:04 AM) Social History Social History Type Response Smoking Status Never smoked cigaret gabrielle Sex Female Cardiology * Contributor_system, [id number]: VERIFY, PERFORM Event Display: EKG Authored Date: Please click on link to see image. Cardiology Outpatient Note * GENE Gamez Sarah A: PERFORM, MODIFY Event Display: Cardiology Outpt Note Authored Date: Primary Care Provider DO Trinidad Jason M Referring Provider DO Trinidad Jason M Chief Complaint - denies chest pain/ tightness, Palpitations, or heart racing, fatigue or SOB denies dizziness or lightheadedness, no edema History of Present Illness Ms. Matthews presents for evaluation of family history of heart disease at a young age. She denies any sob or chest pain. She does occasionally get tingling in her arms but it is not associated with exercise. She walks occasionally but does not consistently exercise. She is not having any palpitations or lightheadedness. 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 Respiratory: Lungs are clear to auscultation, Respirations are non-labored. Cardiovascular: Normal rate, Regular rhythm, No murmur, No edema, no carotid bruits to auscultation bilaterally. Integumentary: Warm, Dry, [place] Neurologic: Alert, Oriented. Cognition and Speech: Speech clear and coherent. Psychiatric: Cooperative, Appropriate mood & affect. Assessment/Plan Impression: 1. Significant family history of early CAD with a sister having CABG at 39 and a sister having CABGin her 50s 2. Frequent PVCs 3. Bradycardia 4. HLD 5. HTN An EKG was performed in the office today showing SR with PVCs of two different morphologies. Ms. Matthews does not feel any palpitations. I would like her to wear a 24 hour Holter monitor to quantify herPVC burden. I would also like her to get lab work today to make sure her electrolytes and thyroid studies today. She will have an echo in the next few days. Her blood pressure is much better controlled with the increase in her hctz by her pcp. I reviewed her most recent lab work. Her LDL was 180 previously but with diet changes reduced to 130s. I discussed with her that her 10 year ASCVD risk is 3.6% which is generally below where we start to recommend statin therapy. Given her family history however she could consider a coronary artery calcium score to evaluate her arterial plaque burden and help risk stratify. If she has a significant score then we would want to be more aggressive with maximizing medical therapy. She would like to think about it and get back to me. If she has a significant PVC burden it would warrant a stress test but I would hold off on referralfor stress testing otherwise as she is not having any concerning anginal symptoms or changes in functional capacity. She did have an EKG with her pcp in the spring with significant bradycardia. She has not had any symptoms consistent with chronotropic incompetence. We reviewed that she would want to let us know if she were getting lightheaded, sob or fatigued with exercise and unable to get her heart rate up above 100 with exertion. We discussed that the AHA recommends 30 minutes of moderate cardiovascular exercise per day or 3.5 hours per week. She should also maintain a Mediterranean diet for heart health. She will return to the clinic in a month Medications aspirin(aspirin 81 mg oral capsule), 81 mg= 1 cap, PO cetirizine(ZyrTEC) [id number] polyunsaturated fatty acids([place] Benefits) hydroCHLOROthiazide(hydroCHLOROthiazide 25 mg oral tablet), 25 mg= 1 tab, PO, Daily ipratropium nasal(ipratropium 21 mcg/inh (0.03%) nasal spray), 2 spray, each nostril, bid, PRN Allergies NKA Social History Smoking Status Never smoked cigarettes Electronic Signature on File CC: Hay Trinidad DO [address] [place] [id number] * Electronically Reviewed/Signed by: GENE Sullivan Author Signature Dt/Tm:07/26/2023 11:40 AM [facility] [place] [facility] Patient Care team information Care Team Personnel Name: DO Trinidad Jason M Position: Referring Member Role: Primary Care Provider Address: Address: [address] [place] [address] [place] Care Team Related Persons Name: WANDER MATTHEWS Address: home [address] [place] [phone]
[2023-10-23] MEDS ORDERED: ONDANSETRON INJ 2 MG/ML 2 ML VIAL IV STA (00:52)
[2023-10-23] MEDS ORDERED: MoRPHine SULFATE 4 MG/ML 1 ML CARP\\VIAL IV STA (00:52)
[2023-10-23] MEDS ORDERED: PIPERACILLIN/TAZOBACTAM 4.5 GM/100 ML BAG IV ONE (01:13)
--- NOTE | 2023-10-23 01:30 | History & Physical Report ---
Date of Service October 23, 2023 Assessment & Plan (1) Acute cholecystitis: Plan: I discussed with the treating emergency room physician the patient will be admitted to the hospital. Will proceed as follows: Analgesics will be provided Antiemetics will be provided Intravenous fluids will be provided for hydration Antibiotics will be initiatedthe treating clinician the emergency department has ordered Zosyn N.p.o. status will be implemented Serial labs will be followed Will tentatively plan on patient undergoing cholecystectomy with Dr. Zhang of [facility] physician group general surgery. Timing is to be determined Due to planned surgery we will get a preoperative chest x-ray SCDs to be used for DVT prevention, no chemical means due to planned surgery She will be a level 1 full code Addendum (5:30 am) Patient revisited after transfer to the medical [facility]. At this time the patient notes that her pain is tolerable but she continues to have pain in the right upper quadrant. She denies any nausea or vomiting at the present time. She has not had any fevers since admission. Preoperative chest x-ray has been performed and does not show any evidence of pneumonia or pleural effusions. Repeat labs have been ordered for this morning which are pending Will maintain n.p.o. status with plans for potential cholecystectomy later today pending Dr. Zhang's review of this case. as above. pt seen. discussed options/risks ( bleeding/infection/injury to an organ or bile duct/dvt/pe/mi/cva etc...). discussed her options. questions answered. will proceed today with stan oakley. pt agrees with the plan. History of Present Illness Chief Complaint: Abdominal pain Primary Care Provider: Hay Trinidad DO This is a 53-year-old female who presented to the emergency department secondary to abdominal pain. This patient notes that she was in her usual state of health feeling fine until approximately 5:00 PM today when she developed sudden upper abdominal pain. She noted that the pain radiated somewhat to her back without palliative or provocative factors. She had nausea without vomiting. She denies any fevers, shakes, or chills. She notes that she has had abdominal surgery in the form of a hysterectomy. 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 She does have a family history of early coronary artery disease. She was seen by her cardiology team in July of this year where patient was noted to have PVCs. At that time she was not experiencing any anginal symptoms. She notes that she is a non-smoker. I did question the patient on anginal type symptoms and she says that with her day-to-day life she does not get chest pain or have shortness of breath. She notes that because of her PVCs and her family history she did also undergo a stress test since her aforementioned visit with our cardiology team in July. She notes there were no concerning findings on her stress test and she was told she only needs routine follow-up with her cardiology team. (She [facility] with [facility] cardiology) Since arrival to the hospital she has had labs and imaging which I independently reviewed. She did undergo a gallbladder ultrasound that showed cholelithiasis with gallbladder wall thickness. There is no biliary ductal dilatation. The interpreting radiologist felt that these findings were indicative of acute cholecystitis. Labs include a CBC her white blood cell count was elevated at 12.3. Hemoglobin and hematocrit as well as platelet count were normal. Chemistry profile showed sodium and potassium along with the BUN and creatinine were normal. The patient's bilirubin alkaline phosphatase as well as her lipase were all normal. Her ALT was normal and she only had a slight elevation of the AST at 50. Urinalysis was not indicative of infection. An EKG showed normal sinus rhythm with an occasional PVC. There are no changes apparent of acute ischemia. At the time of my interview the patient was resting comfortably in bed and she was in no distress. Allergies Allergy/AdvReac Type Severity Reaction Status Date / Time No Known Drug Allergies Allergy Unknown Unknown Verified 10/23/23 02:42 Home Medications Medication Instructions Recorded Confirmed Type ascorbic acid (vitamin C) 500 mg 500 mg PO DAILY 03/22/20 10/23/23 History chewable tablet cholecalciferol (vitamin D3) 50 50 mcg PO DAILY 03/22/20 10/23/23 History mcg (2,000 unit) capsule cetirizine 10 mg tablet (Zyrtec) 10 mg PO DAILY PRN .allergies 03/04/22 10/23/23 History lactobacillus combination no.4 3 3,000 mmu cells PO DAILY 11/17/22 10/23/23 History billion cell capsule (Probiotic) metronidazole 1 % topical gel 1 applic topical DAILY PRN rosacea 11/17/22 10/23/23 Rx #60 grams metoprolol succinate 25 mg 25 mg PO DAILY 08/10/23 10/23/23 History tablet,extended release 24 hr aspirin 81 mg chewable tablet 81 mg PO DAILY #90 tabs 08/19/23 10/23/23 Rx (Aspirin Childrens) atorvastatin 10 mg tablet 10 mg PO DAILY #90 tabs 08/19/23 10/23/23 Rx [place] With Vitamin D3 2,400 mg PO DAILY 10/23/23 10/23/23 History lisinopril 20 mg tablet 10 mg PO DAILY 10/23/23 10/23/23 History Past Med/Surg History Medical History Shingles rash Surgical History History of shoulder surgery History of hysteroscopy with endometrial ablation History of hysterectomy Family History Father Diabetes Coronary heart disease Hypertension Dyslipidemia Mother Diabetes Hypertension Dyslipidemia Sister Coronary heart disease Hypertension Dyslipidemia Brother Hypertension Dyslipidemia Denies family history of Breast cancer Colorectal cancer Social History Smoking Status: Never smoker Second Hand Exposure: No; Do You Dip or Chew Tobacco: No; Hx Alcohol Use: Yes Alcohol type: hard liquor Hx Substance Use: No Preferred Language: Syriac Communication Ability: Effective Academic Services Professional Required: No Beliefs That Will Affect Care: None marital status: Current Living Situation: Spouse current occupational status: employed 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 How many Children do You have: 1 Feels Safe at Home: Yes Safety Concerns: Feels Safe At This Time Childhood Exposure to Second-Hand Smoke: No Diet: regular caffeine: Yes Dental Care, Regularly: No Physical Activity Frequency: 1-2 Times per Week Seatbelt Use: always Sunscreen Use: Yes Assistive Devices: Glasses Review of Systems Constitutional: no fever and no chills Ear, Nose, Mouth, Throat: no ear pain Respiratory: no cough and no dyspnea Cardiovascular: no chest pain Gastrointestinal: as per Subjective / HPI Genitourinary: no dysuria Musculoskeletal: no back pain Integumentary: no rash Neurologic: no localized weakness Physical Exam Constitutional: WD/WN, vitals as above Eyes: + anicteric sclerae ENMT: Ears: no external ear abnormality Neck: trachea midline Respiratory: normal respiratory effort; no respiratory distress and no labored breathing Cardiovascular: Rate/Rhythm: regular rate and regular rhythm Gastrointestinal (Abdomen): Abdomen is soft and nonrigid. It is nondistended. Patient did have significant pain with palpation greatest in the right upper quadrant. Musculoskeletal: No calf tenderness Skin: no rashes Neurologic: moves all extremities Psychiatric: A+Ox3, euthymic affect Results & Data Results & Data Vital Signs (Past 12 Hours) Vital Signs Temp Pulse Pulse Resp BP BP Pulse Ox 10/22/23 23:37 56 L 18 148/85 H 97 10/22/23 18:18 36.5 C 70 20 150/89 H 96 O2 Del Method 10/22/23 23:37 Room Air 10/22/23 18:18 Room Air PG Care Time/CCT Total # of Minutes Spent Total Time Spent with Patient: Total time spent is greater than 50% in coordination of care (as documented) at patient's floor/unit and/or counseling patient: Coding Level of Care Code 76831 INT INP/OBS CARE 3/75MIN Diagnoses Acute cholecystitis K81.0
[2023-10-23] MEDS ORDERED: ONDANSETRON INJ 2 MG/ML 2 ML VIAL IV PRN ×2 (01:31→10:24)
[2023-10-23] MEDS: SODIUM CHLORIDE 0.9% 1,000 ML IV SCH ×2 (01:54→12:56)
[2023-10-23] MEDS: PIPERACILLIN/TAZOBACTAM 4.5 GM in DEXTROSE 5% MINI-B 100 ML IV SCH ×2 (05:17→13:25)
[2023-10-23] MEDS: MoRPHine SULFATE 4 MG/ML 1 ML CARP\\VIAL IV PRN ×4 (05:18→16:32)
[2023-10-23 06:44] LABS: Basophils # (auto) 0.06 K/uL (0.00-0.20); Basophils % (auto) 0.7 %; Eosinophils # (auto) 0.16 K/uL (0.00-0.50); Eosinophils % (auto) 1.8 %; Hematocrit (blood only) 37.2 % (37.0-47.0); Hemoglobin 12.3 g/dl (12.0-16.0); Immature Granulocytes # (auto) 0.04 K/uL (0.01-0.20); Immature Granulocytes % (auto) 0.4 %; Lymphocytes # (auto) 2.74 K/uL (1.20-3.40); Lymphocytes % (auto) 30.3 %; Mean Corpuscular Hemoglobin 27.8 pg (25.0-34.0); Mean Corpuscular Hgb Conc 33.1 g/dL (32.0-36.0); Mean Platelet Volume 9.7 fL (9.4-12.4); Monocytes # (auto) 0.67 K/uL (0.11-0.59); Monocytes % (auto) 7.4 %; Neutrophils # (auto) 5.37 K/uL (1.40-6.50); Neutrophils % (auto) 59.4 %; Platelet Count 306 K/uL (130-400); RDW Coefficient of Variation 13.2 % (11.5-14.5); RDW Standard Deviation 40.4 fL (36.4-46.3); Red Blood Count 4.43 M/uL (4.20-5.40); White Blood Count 9.04 K/ul (4.8-10.8)
[2023-10-23 07:03] LABS: Albumin Globulin Ratio 1.6 (0.9-2); Albumin Level 3.7 gm/dl (3.4-5.0); BUN Creatinine Ratio 17.2 (10-20); Bilirubin,Total 0.8 mg/dl (0.2-1.0); Calcium 8.6 mg/dl (8.6-10.3); Creatinine Clr Calc Pharmacy 116.6 ml/min; Est GFR (African American) 118.9 ml/min; Est GFR (Non-African American) 102.6 ml/min; Globulin 2.3 gm/dl (2.5-4.0); Potassium 3.4 mmol/L (3.5-5.1)
--- NOTE | 2023-10-23 07:46 | Electrocardiogram Report ---
Test Reason : Blood Pressure : / mmHG Vent. Rate : 080 BPM Atrial Rate : 080 BPM P-R Int : 170 ms QRS Dur : 080 ms QT Int : 368 ms P-R-T Axes : 052 -14 025 degrees QTc Int : 424 ms Sinus rhythm with occasional Premature ventricular complexes Low voltage QRS Poor R wave progression, consider anterior NM vs. lead placement vs. LVH Abnormal ECG No previous ECGs available Confirmed by Josh Macias ([id number]) on 10/23/2023 7:46:32 AM Referred By: REFERRED SELF Confirmed By:Josh Macias
--- NOTE | 2023-10-23 08:02 | XRay Report ---
XR chest 1V portable HISTORY: 53 years-old Female pre-op preoperative exam. No acute chest complaints COMPARISON: Chest radiographs 09/07/2014 TECHNIQUE: AP view of the chest FINDINGS: Cardiomediastinal and hilar silhouettes are within normal limits. No pneumothorax, pleural effusion o r airspace consolidation. Bones appear grossly intact. Right proximal humeral surgical anchors. IMPRESSION: No acute process. ACT 112: Negative or not required by law. The above report was generated using voice recognition software. It may contain grammatical, syntax o r spelling errors. Electronically signed by: Raheem Perkins M.D. 10/23/2023 8:01 AM
[2023-10-23] MEDS ORDERED: METOPROLOL SUCC 25MG EXT REL TAB PO SCH (09:00)
[2023-10-23] MEDS ORDERED: BUPIVACAINE/EPINEPHRINE 0.5% MPF 1:200,000 30 ML VIAL ONE (10:00)
[2023-10-23] MEDS ORDERED: fentaNYL citrate PF 100 MCG/2 ML VIAL ONE (10:02)
[2023-10-23] MEDS ORDERED: MIDAZOLAM HCL 1 MG/ML 2ML VIAL ONE (10:02)
[2023-10-23] MEDS ORDERED: fentaNYL citrate PF 100 MCG/2 ML VIAL IV PRN (10:24)
[2023-10-23] MEDS ORDERED: ATROPINE SULFATE 0.1 MG/ML 10ML SYR IV PRN (10:24)
[2023-10-23] MEDS ORDERED: PROMETHAZINE HCL 6.25 MG in SODIUM CHLORIDE 0.9% 50 ML IV PRN (10:24)
[2023-10-23] MEDS ORDERED: ePHEDrine sulfate 50 MG/ML AMP IV PRN (10:24)
--- NOTE | 2023-10-23 10:24 | Anesthesiology Consultation ---
Date of Service October 23, 2023 Assessment & Plan Chart Review Chart Review: Acceptable Risk for Surgery and Patient NOT seen in Pre Admission Testing Consults Requested none ASA ASA2 Proposed Anesthesia Anesthesia Type: General Risk / Benefits Reviewed With: PT / POA / Parent / Guardian, Accepts Plan and Informed Consent Obtained History Surgery Operation Date: 10/23/23 13:00 Proposed Procedures p Laparoscopic Cholecystectomy - Hema Zhang, DO Height/Weight Height: 5 ft 7 in Weight: 87.203 kg Allergies Allergy/AdvReac Type Severity Reaction Status Date / Time No Known Drug Allergies Allergy Unknown Unknown Verified 10/23/23 02:42 Medications Home Medications Medication Instructions Recorded Confirmed Last Taken ascorbic acid (vitamin C) 500 mg 500 mg PO DAILY 03/22/20 10/23/23 Unknown chewable tablet cholecalciferol (vitamin D3) 50 50 mcg PO DAILY 03/22/20 10/23/23 Unknown mcg (2,000 unit) capsule cetirizine 10 mg tablet (Zyrtec) 10 mg PO DAILY PRN .allergies 03/04/22 10/23/23 Unknown lactobacillus combination no.4 3 3,000 mmu cells PO DAILY 11/17/22 10/23/23 Unknown billion cell capsule (Probiotic) metronidazole 1 % topical gel 1 applic topical DAILY PRN rosacea 11/17/22 10/23/23 Unknown #60 grams metoprolol succinate 25 mg 25 mg PO DAILY 08/10/23 10/23/23 Unknown tablet,extended release 24 hr aspirin 81 mg chewable tablet 81 mg PO DAILY #90 tabs 08/19/23 10/23/23 Unknown (Aspirin Childrens) atorvastatin 10 mg tablet 10 mg PO DAILY #90 tabs 08/19/23 10/23/23 Unknown [place] With Vitamin D3 2,400 mg PO DAILY 10/23/23 10/23/23 Unknown lisinopril 20 mg tablet 10 mg PO DAILY 10/23/23 10/23/23 Unknown Active Medications Generic Name Dose Route Start Last Admin Trade Name Freq PRN Reason Stop Dose Admin Piperacillin Sod/Tazobactam 100 mls @ 25 mls/hr 10/23/23 06:00 10/23/23 09:23 Sod 4.5 gm/ Dextrose IV 11/02/23 05:59 Infused Q8H HARISH Infusion Protocol Sodium Chloride 1,000 mls @ 75 mls/hr 10/23/23 01:45 10/23/23 01:54 Nss IV 11/22/23 01:44 75 mls/hr .[id number] HARISH Administration Metoprolol Succinate 25 mg 10/23/23 09:00 10/23/23 08:14 Metoprolol Succ 25mg Ext Rel Tab PO 11/22/23 08:59 Not Given DAILY HARISH Morphine Sulfate 3 mg 10/23/23 01:31 10/23/23 09:47 Morphine Sulfate 4 Mg/Ml 1 Ml Carp\Vial IV 11/06/23 01:30 3 mg Q3H PRN Administration Pain Past Medical History Medical History Shingles rash Exercise / Class Metabolic Activity II 4-5 Yardwork/Stairs/Walk up hill Past Family History Family History Father Diabetes Coronary heart disease Hypertension Dyslipidemia Mother Diabetes Hypertension Dyslipidemia Sister Coronary heart disease Hypertension Dyslipidemia Brother Hypertension Dyslipidemia Denies family history of Breast cancer Colorectal cancer Past Surgical History Surgical History History of shoulder surgery History of hysteroscopy with endometrial ablation History of hysterectomy Past Anesthesia History No Hx of Anesthesia Complications and No Family Hx of Anesthesia Complications History of PONV No Hx of PONV and No Hx of Motion Sickness Social History Smoking Status: Never smoker Do You Dip or Chew Tobacco: No Hx Alcohol Use: Yes Alcohol type: hard liquor alcohol intake frequency: holidays/special occasions only Hx Substance Use: No Physical Exam Vital Signs Last Vital Signs Temp 36.4 C L 10/23/23 07:45 Pulse 58 L 10/23/23 07:45 Resp 16 10/23/23 07:45 BP 112/68 10/23/23 07:45 Pulse Ox 100 10/23/23 07:45 O2 Del Method Room Air 10/23/23 07:45 ENMT Mouth: no dentition abnormality Thyromental Distance: > or= 3.5 Finger Breadths Mallampati Class: II Neck normal visual inspection Respiratory normal respiratory effort Auscultation: lungs clear to auscultation bilaterally Cardiovascular Rate/Rhythm: regular rate and regular rhythm Psychiatric Orientation: alert Testing Laboratory Results 10/23/23 06:20 10/23/23 06:20 Urine Color Dark Yellow 10/22/23 21:07 Urine Appearance Clear (Clear) 10/22/23 21:07 Urine pH 5.5 (4.5-7.5) 10/22/23 21:07 Ur Specific [place] 1.039 (1.000-1.030) H 10/22/23 21:07 Urine Protein Negative (Negative) 10/22/23 21:07 Urine Glucose (UA) Negative (Negative) 10/22/23 21:07 Urine Ketones Trace (Negative) H 10/22/23 21:07 Urine Nitrite Negative (Negative) 10/22/23 21:07 Ur Leukocyte Esterase Negative (Negative) 10/22/23 21:07
[2023-10-23] MEDS ORDERED: LARYING-O-JET KIT (LTA) ONE (10:51)
[2023-10-23] MEDS ORDERED: PROPOFOL IV EMULSION 10 MG/ML 20 ML VIAL IV ONE (10:51)
[2023-10-23] MEDS ORDERED: SUGAMMADEX SODIUM 200 MG/2 ML VIAL IV ONE (10:51)
[2023-10-23] MEDS ORDERED: LIDOCAINE 2% 2 ML VIAL/AMP(20MG/ML) INFIL ONE (10:51)
[2023-10-23] MEDS ORDERED: ONDANSETRON INJ 2 MG/ML 2 ML VIAL ONE (10:51)
[2023-10-23] MEDS ORDERED: ROCURONIUM BROMIDE 10 MG/ML 5 ML VIAL IV ONE (10:51)
[2023-10-23] MEDS ORDERED: DEXAMETHASONE SOD INJ 4 MG/ML VIAL ONE (10:51)
--- NOTE | 2023-10-23 11:20 | Operative Report ---
PG Post Operative Report Pre & Post Diagnosis Operation Date: 10/23/23 13:00 Pre-Op Diagnosis: Acute cholecystitis. Post-Op Diagnosis: Acute cholecystitis. I identified the patient and participated in the time-out.: Yes Procedure Operation Date: 10/23/23 13:00 Actual Procedures p Laparoscopic Cholecystectomy - Hema Zhang DO Surgeon Hema Zhang DO Medical Services Manager n/a Estimated Blood Loss 5 Findings Consistent with Post-Op Diagnosis Specimens gallbladder Description of Procedure After informed consent was obtained the patient was taken to the operating room and placed in the supine position. After successful intubation the abdomen was sterilely prepped and draped in usual fashion. A periumbilical incision was mad e with an 11 blade scalpel and carried down through the soft tissue using electrocautery. The anterior rectus fascia was opened using electrocautery and 2 #0 Vicryl stay sutures were placed. The peritoneum was elevated with hemostats and incised under direct vision using Metzenbaum scissors. A finger sweep was performed and a 12 mm Harley trocar was placed. The abdomen was insufflated to 18 mmHg. The laparoscope was inserted and the abdomen was examined in 360. Her gallbladder was mildly acutely inflamed and there was also a small hiatal hernia, otherwise no gross abnormalities were identified. A subxiphoid 5 mm port and 2 right upper quadrant 5 mm ports were placed under direct vision. The patient was placed in a reverse Trendelenburg position and slightly airplaned to the left. The gallbladder was grasped and elevated superiorly and laterally. A [place] dissector was used to take down adhesions around the neck of the gallbladder. The cystic duct was identified and skelet onized. It was clipped twice proximally and once distally and transected using a laparoscopic scissor. In similar fashion the cystic artery was identified and skeletonized clipped and divided. The gallbladder was removed from the gallbladder fossa with electrocautery. It was placed into an Endo Catch bag. Thorough irrigation was performed. At the end of the procedure there was adequate hemostasis and no evidence of any bile leaks. A final look around the abdomen showed no other abnormalities. The gallbladder and trochars were all removed and the abdomen was desufflated. The fascia of the camera port was closed using 0 Vicryl in a [id number] fashion. All the wounds were irrigated and closed using 4-0 Monocryl. Marcaine was injected around them for postoperative analgesia and skin glue used as a dressing. The patient was awaken extubated and transferred to recovery in stable condition. I attest to the content of the Intraoperative Record and any orders documented therein. Any exceptions are noted below.
--- NOTE | 2023-10-23 13:35 | Anesthesiology Progress Note ---
Date of Service October 23, 2023 Anesthesia Post Procedure Vital Signs Vital Signs: Temp Pulse Pulse Pulse Pulse Resp BP 10/23/23 13:15 36.5 C 66 16 10/23/23 12:45 36.3 C L 62 18 10/23/23 11:55 64 22 10/23/23 11:50 36.9 C 75 20 10/23/23 11:40 69 19 10/23/23 11:30 63 15 10/23/23 11:22 36.7 C 76 15 10/23/23 07:45 36.4 C L 58 L 16 10/23/23 06:32 36.3 C L 10/23/23 05:21 10/23/23 04:45 36 C L 60 16 10/23/23 03:00 56 L 13 119/76 10/23/23 02:30 55 L 13 128/77 10/23/23 02:11 52 L 10/23/23 02:00 58 L 23 124/87 10/23/23 01:52 59 L 22 144/95 H 10/22/23 23:37 56 L 18 10/22/23 18:18 36.5 C 70 20 150/89 H BP Pulse Ox O2 Del Method O2 Flow Rate 10/23/23 13:15 139/90 98 Nasal Cannula 2 10/23/23 12:45 131/85 98 Nasal Cannula 2 10/23/23 11:55 148/94 H 94 Room Air 0 10/23/23 11:50 136/98 92 Room Air 0 10/23/23 11:40 138/91 92 Room Air 0 10/23/23 11:30 137/83 97 Oxymask 4 10/23/23 11:22 147/99 H 98 Oxymask 8 10/23/23 07:45 112/68 100 Room Air 10/23/23 06:32 10/23/23 05:21 Room Air 10/23/23 04:45 135/81 99 Room Air 10/23/23 03:00 99 Room Air 10/23/23 02:30 96 Room Air 10/23/23 02:11 10/23/23 02:00 96 Room Air 10/23/23 01:52 96 Room Air 10/22/23 23:37 148/85 H 97 Room Air 10/22/23 18:18 96 Room Air Pain Intensity Abdomen: Pain Intensity: 4 Transfer of Care Handoff Completed per policy Notes Mental Status: alert / awake / arousable Patient Amnestic to Procedure: Yes Nausea / Vomiting: adequately controlled Pain: adequately controlled Airway Patency, RR, SpO2: stable & adequate BP & HR: stable & adequate Hydration State: stable & adequate Anesthetic Complications: no major complications apparent
== END 2023-10-23 16:54 | disposition home or self-care (01) | DRG 419 ==
LOC: ED 17:57 → INTOOBSV 10-23 01:36 → 3E 10-23 01:36